=== PATIENT | female | born 1985 | race Caucasian/White ===

== ENCOUNTER 2018-12-11 15:24 | Emergency (ER) | payer SELFPAY ==
[~2018-12-11] VITALS: Ht 165.1 cm; Wt 63.5 kg
[2018-12-11 15:25] VITALS: BP_SYST 158
[2018-12-11] MEDS ORDERED: LORazepam 1 MG TABLET PO ONE (16:00)
[2018-12-11 17:48] VITALS: BP_SYST 125
== END 2018-12-11 17:42 | disposition home or self-care (01) ==
LOC: SED 15:24
DX: F45.8 Other somatoform disorders (principal); R03.0 Elevated blood-pressure reading, without diagnosis of hypertension
CPT/HCPCS: 99283